=== PATIENT | female | born 1945 | race Caucasian/White ===

== ENCOUNTER 2018-01-20 05:41 | Day surgery (SDC) | payer OTHER ==
[2018-01-20] MEDS ORDERED: ceFAZolin 2 GM/SWFI 2 GM/20 ML SYR IVP ONE (05:56)
[2018-01-20] MEDS ORDERED: NS 500 ML IV ONE (05:58)
--- NOTE | 2018-01-20 06:21 | CPEKG ---
Heart Rate: 52 RR Interval: 1154 P-R Interval: 196 QRSD Interval: 94 QT Interval: 468 QTC Interval: 436 P Phelps: 52 QRS Phelps: -9 T Wave Phelps: 95 EKG Severity - ABNORMAL ECG - EKG Impression: SINUS RHYTHM EKG Impression: NONSPECIFIC T ABNORMALITIES, ANT-LAT LEADS Electronically Signed By: Travis Garcia 20-Jan-2018 10:45:59
[2018-01-20] MEDS ORDERED: LIDOCAINE 1% 300 MG/30 ML SDV ONE (07:05)
[2018-01-20] MEDS ORDERED: THROMBIN (BOVINE) 5,000 UNIT VIAL TP ONE (07:05)
[2018-01-20] MEDS ORDERED: THROMBIN (BOVINE) 20,000 UNIT SPRAY TP ONE (07:05)
[2018-01-20] MEDS ORDERED: BUPIVACAINE 0.5% 30 ML SDV ONE (07:06)
[2018-01-20] MEDS ORDERED: PAPAVERINE HCL 60 MG/2 ML SDV ONE (07:06)
[2018-01-20] MEDS ORDERED: NA BICARBONATE 50 MEQ/50 ML VIAL ONE (07:06)
[2018-01-20] MEDS ORDERED: HEPARIN 50,000 UNIT/10 ML VIAL ONE (07:06)
--- NOTE | 2018-01-20 07:19 | PDHPUP ---
History & Physical Update H&P update statement: This history and physical update is based on an assessment of the patient which was completed after admission or registration (within 24 hours), but prior to the surgery/procedure. H&P update: H&P reviewed & patient examined, no change in patient's condition since H&P completed
--- NOTE | 2018-01-20 07:27 | PDANEPAE ---
ANE History of Present Illness 72 yo female with end stage CKD for dialysis cath and AV fistula placement. ANE Past Medical History - Cardiovascular History Hx Hypertension: Yes Hx Arrhythmias: No Hx Chest Pain: No Hx Coronary Artery / Peripheral Vascular Disease: No Hx CHF / Valvular Disease: Yes Hx Palpitations: No Cardiovascular History Comment: hyperlipidemia. hx of lower extremity edema. chf - Pulmonary History Hx COPD: No Hx Asthma/Reactive Airway Disease: No Hx Recent Upper Respiratory Infection: No Hx Oxygen in Use at Home: No Hx Sleep Apnea: No Sleep Apnea Screening Result - Last Documented: Positive Pulmonary History Comment: hx of PE 02/2013 at [facility] with recurrence 09/2013 - Neurologic History Hx Cerebrovascular Accident: No Hx Seizures: No Neurologic History Comment: essential tremor. left hand numbness. daytime sleepiness- tested for MIC in hosp with negative result - Endocrine History Hx Diabetes: Yes Hypothyroid: Yes Hyperthyroid: No Obesity: moderate Endocrine History Comment: type 2 DM since 2004. hypothyroidism - Renal History Hx Renal Disorders: Yes Renal History Comment: ckd stg 4 d/t SNEHAL and probable diabetic nephropathy. ARF in 07/2010 d/t volume depletion on lasix and. hx of uti - Liver History Hx Hepatic Disorders: No - Neurological & Psychiatric Hx Hx Neurological and Psychiatric Disorders: No - Cancer History Hx Cancer: No - Congenital Disorder History Hx Congenital Disorders: No - GI History Hx Gastrointestinal Disorders: Yes Gastrointestinal History Comment: poss diverticulitis - Other Health History Other Health History: gout - Chronic Pain History Chronic Pain: No - Surgical History Prior Surgeries: cataracts ANE Review of Systems Review of Systems: Pt states she has no recent health problems. She ambulates only with a walker, does not climb stairs. Does not think she has had a cough or cold or chest pains. Care facility unable to say when she last received Nitrostat. - Exercise capacity METS (RN): 2 METS ANE Patient History - Allergies Allergies/Adverse Reactions: allopurinol Allergy (Verified 01/14/18 16:33) Rash amoxicillin [From Augmentin] Allergy (Verified 01/14/18 16:33) Rash clavulanic acid [From Augmentin] Allergy (Verified 01/14/18 16:33) Rash fenofibrate Allergy (Verified 01/14/18 16:33) ARF - Home Medications Home Medications: Aspirin 81mg (*) 81 mg PO DAILY 01/14/18 [Last Taken Unknown] Atorvastatin Calcium 20 mg PO HS 01/14/18 [Last Taken Unknown] Biotene (*) 1 spray PRN 01/14/18 [Last Taken Unknown] Cholecalciferol (Vitamin D3) 50,000 unit PO 01/14/18 [Last Taken Unknown] Famotidine 20 mg PO DAILY 01/14/18 [Last Taken Unknown] Humalog 4 units SQ TID 01/14/18 [Last Taken Unknown] IPRATROPIUM BROMIDE 1 IH Q6H PRN 01/14/18 [Last Taken Unknown] Lantus 40 units SQ BID 01/14/18 [Last Taken Unknown] Lasix 80 MG (*) 80 mg PO BID 01/14/18 [Last Taken Unknown] Mucinex 600 MG (*) 600 mg PO TID 01/14/18 [Last Taken Unknown] Nitrostat 0.4 mg (*) 0.4 mg SL PRN 01/14/18 [Last Taken Unknown] Tessalon Pearles 100 mg PO Q4H PRN 01/14/18 [Last Taken Unknown] - NPO status NPO Since - Liquids (Date): 01/19/18 NPO Since - Liquids (Time): 23:55 NPO Since - Solids (Date): 01/19/18 NPO Since - Solids (Time): 23:55 - Anes Hx Anes Hx: no prior problems - Smoking Hx Smoking Status: Never smoked Marijuana use: No - Family Anes Hx Family Hx Anesthesia Complications: son of complications with intubation during an elective surgery per nephrology H&P ANE Labs/Vital Signs - Vital Signs Blood Pressure: 147/65 Heart Rate: 83 Respiratory Rate: 16 O2 Sat (%): 92 Height: 157.48 cm Weight: 93.803 kg ANE Physical Exam - Airway Neck exam: short neck Mallampati Score: Class 4 (not cooperative with exam. short TMD) Mouth exam: poor dentition - Pulmonary Pulmonary: other (reduced air movement) - Cardiovascular Cardiovascular: systolic murmur (II/ [place]) - ASA Status ASA Status: IV ANE Anesthesia Plan Anesthesia Plan: general endotracheal anesthesia
[2018-01-20 07:30] LABS: INR 0.95 (0.83-1.16); PROTIME(PATIENT) 12.9 SEC (12.0-15.0)
[2018-01-20] MEDS ORDERED: ONDANSETRON 4 MG/2 ML VIAL ONE (07:38)
[2018-01-20] MEDS ORDERED: ETOMIDATE 20 MG/10 ML VIAL ONE (07:38)
[2018-01-20] MEDS ORDERED: CISATRACURIUM BESYLATE 20 MG/10 ML VIAL IV ONE (07:38)
[2018-01-20] MEDS ORDERED: HEPARIN 10,000 UNIT/10 ML MDV (1,000 UNIT/ML) ONE (08:04)
[2018-01-20] MEDS ORDERED: fentaNYL 100 MCG/2 ML INJ ONE (08:17)
[2018-01-20] MEDS: PROTAMINE SULFATE 50 MG/5 ML VIAL IVP ONE ×2 (08:37→08:58)
[2018-01-20] MEDS ORDERED: HYDROCODONE/APAP 5/325 TAB PO PRN (09:10)
[2018-01-20] MEDS ORDERED: PROMETHAZINE HCL 25 MG/ML INJ IVP PRN (09:10)
[2018-01-20] MEDS ORDERED: ACETAMINOPHEN 500 MG TAB PO PRN (09:10)
[2018-01-20] MEDS ORDERED: NALOXONE HCL 0.4 MG/ML INJ IVP PRN ×2 (09:10)
[2018-01-20] MEDS ORDERED: fentaNYL 100 MCG/2 ML INJ IVP PRN (09:10)
[2018-01-20] MEDS ORDERED: ALBUTEROL 3 ML DEYVIAL IH PRN (09:10)
[2018-01-20] MEDS ORDERED: NEOSTIGMINE METHYLSULFATE 3 MG/3 ML SYR ONE (09:14)
[2018-01-20] MEDS ORDERED: GLYCOPYRROLATE 0.2 MG/1 ML VIAL ONE (09:16)
--- NOTE | 2018-01-20 09:40 | POSTOPPROG ---
Post Op Note Date of Operation: 01/20/18 Surgeon: Zoltan Ortiz Timber Repairer: Cam Anesthesiologist: Dela Cruz Anesthesia: GET(General Endotracheal) Pre-op Diagnosis: ESRD Post-op Diagnosis: same Indication: same Procedure: Left upper extremity brachiocephalic AV fistula Inf/Abcess present in the surg proc area at time of surgery?: No Depth: Deep Incisional (Fascial) EBL: Minimal
--- NOTE | 2018-01-20 09:43 | PDIAF ---
- Medication Management Discharge Medications: Medications to Continue on Transfer Aspirin 81mg (*) 81 mg PO DAILY 01/14/18 [Last Taken 01/19/18] Atorvastatin Calcium 20 mg PO HS 01/14/18 [Last Taken 01/19/18] Biotene (*) 1 spray PRN 01/14/18 [Last Taken 01/19/18] Cholecalciferol (Vitamin D3) 50,000 unit PO 01/14/18 [Last Taken 01/19/18] Famotidine 20 mg PO DAILY 01/14/18 [Last Taken 01/20/18] Humalog 4 units SQ TID 01/14/18 [Last Taken 01/19/18] IPRATROPIUM BROMIDE 1 IH Q6H PRN 01/14/18 [Last Taken Unknown] Lantus 40 units SQ BID 01/14/18 [Last Taken 01/20/18] Lasix 80 MG (*) 80 mg PO BID 01/14/18 [Last Taken 01/19/18] Mucinex 600 MG (*) 600 mg PO TID 01/14/18 [Last Taken 01/19/18] Nitrostat 0.4 mg (*) 0.4 mg SL PRN 01/14/18 [Last Taken Unknown] Tessalon Pearles 100 mg PO Q4H PRN 01/14/18 [Last Taken 01/19/18] Hydrocodone/APAP 5/325 [Zoe 5/325 (*)] 1 - 2 tab PO Q4HRS PRN tab 01/20/18 [ Last Taken Unknown] Discharge Medications: Refer to the Discharge Home Medication list for PRN reason. - Orders Services needed: Registered Nurse Diet Recommendation: no restrictions on diet Diet Texture: Regular Texture Diet Additional Instructions: Avoid heavy lifting with left arm. You may shower 24 hours after your surgery, but do not soak in a tub or pool. Zoe for pain. Ok to take plain tylenol as well, but do not exceed 3000mg of Tylenol in 24 hours. Call our office and make a follow up appointment for one week from now. Call with fever, chills and increased pain. - Follow Up Care Current Providers and Referrals: NONE *PRIMARY CARE P,. [Primary Care Provider] - Zoltan Ortiz MD [Medical Doctor] - follow up in 1 week
--- NOTE | 2018-01-20 09:45 | POSTANESTH ---
Post Anesthetic Evaluation Cardiovascular Status: Normal, Stable Respiratory Status: Normal, Stable Level of Consciousness/Mental Status: Other, See Comment (Pt awake and spont vent, but not oriented. Slightly combative. Does not report any pain or nausea at this time.) Pain Control: Adequate, Prn Tx Ordered Nausea/Vomiting Control: Adequate, Prn Tx Ordered Complications Possibly Related to Anesthesia: None Noted
[2018-01-20] MEDS ORDERED: ACETAMINOPHEN 500 MG TAB ONE (12:09)
[2018-01-20 12:35] VITALS: BP 130/52
--- NOTE | 2018-01-20 15:29 | GOP ---
[f rep st] OPERATIVE REPORT DATE OF OPERATION: SURGEON: Zoltan Ortiz MD GUIDE TRAVEL: Salima Levy, nurse practitioner. ANESTHESIOLOGIST: Dr. Lorenzo. PREOPERATIVE DIAGNOSIS: Chronic renal failure. POSTOPERATIVE DIAGNOSIS: Chronic renal failure. PROCEDURE PERFORMED: Ultrasound vein mapping left arm and left brachial cephalic arteriovenous fistu la. FINDINGS: Patient was found to have an adequate cephalic vein with an excellent thrill and bruit pos toperatively. Her cephalic vein at the wrist was only 2 mm. ESTIMATED BLOOD LOSS: Less than 25 cc. DESCRIPTION OF PROCEDURE: The patient was taken to the operating room where she received satisfactor y general endotracheal anesthesia by Dr. Lorenzo. She was placed in supine position with the left ar m outstretched on an arm board, prepped and draped in the usual sterile fashion. Using ultrasound guidance the veins of the arm were mapped and the upper arm cephalic vein appeared t o be quite adequate, as opposed to the wrist cephalic vein. A curvilinear incision was made over the antecubital space and dissection extended down through subcu taneous tissue. Biceps aponeurosis was divided and the brachial artery was dissected free and contro lled with vessel loops. The cephalic vein was dissected free in the antecubital space. It was divid ed away from its branches with the basilic vein so it could be transposed over to the brachial artery . There was good backflow from the vein and it dilated easily. The patient was systemically heparin ized and an end-to-side anastomosis was made to the brachial artery creating an 8 mm anastomosis. Th is was done with a running 6-0 Prolene suture. Flow was first established through the AV fistula, th en back down the hand. She had good radial pulse maintained and excellent flow in the AV fistula. H emostasis was obtained. Additional 6-0 Prolene suture was placed in the suture line near a small vei n branch, which was leaking. Hemostasis was clearly obtained. Heparin was reversed with protamine. The wound was infiltrated with 0.5% Marcaine and sprayed with some topical thrombin and then closed in layers using 3-0 Vicryl for the subcutaneous tissue and a 4-0 Monocryl subcuticular stitch for the skin. She tolerated procedure well and taken to the recovery room in good condition. COMPLICATIONS: There were no complications. /[id number]/MODL
== END 2018-01-20 12:41 ==
LOC: FSGY 05:41
PROVIDERS: ATTEND Surgery
PROC: 03180ZD Bypass Left Brachial Artery to Upper Arm Vein, Open Approach (ICD-10-PCS; principal; 2018-01-20 07:15)
DX: N18.6 End stage renal disease (principal); E11.9 Type 2 diabetes mellitus without complications; E78.5 Hyperlipidemia, unspecified; I10 Essential (primary) hypertension
CPT/HCPCS: J0690; J1642; J1644; J2405; J2440; J2710; J2720; J3010

== ENCOUNTER 2018-06-07 11:32 | Day surgery (SDC) | payer OTHER, MEDICAID ==
--- NOTE | 2018-06-06 09:25 | GHP ---
DATE OF ADMISSION: 06/07/2018 HISTORY OF PRESENT ILLNESS: The patient a pleasant 72-year-old female with chronic renal failure not yet on dialysis, who was seen in followup in our clinic after left upper extremity AV fistula creati on in December of 2017. Examination of her fistula is pulsatile just proximal from the AV anastomosis. M ore proximal to this she has an even thrill. Ultrasound examination shows a fairly severe stenosis w ith a possible tributary. She is here now for revision of her AV fistula, likely using a vein patch. PAST MEDICAL HISTORY: Chronic kidney disease, depression, diabetes, hypercalcemia, hyperlipidemia, h ypothyroidism, history of pulmonary embolism. PAST SURGICAL HISTORY: AV fistula, cholecystectomy. MEDICATIONS: Carvedilol, gabapentin, Humalog insulin, hydroxyzine, Lantus insulin, Lasix, levothyrox ine, lisinopril, Lyrica, Norvasc, Percocet, prednisone, Vagisil, warfarin. ALLERGIES: Allopurinol and Augmentin. SOCIAL HISTORY: The patient lives in a fdc. She is a nonsmoker. REVIEW OF SYSTEMS: A 10-point review of systems negative aside from that documented in HPI. PHYSICAL EXAMINATION: GENERAL: Reveals a chronically ill-appearing woman in a wheelchair. HEENT: Normocephalic atraumatic. CHEST: Clear to auscultation bilaterally. CARDIAC: Regular rate and rhy thm. ABDOMEN: Soft, nontender. EXTREMITIES: Per above. Fistula with pulsatile thrill. Hand is w arm and dry. DATA REVIEWED: Ultrasound examination shows a dilated vein proximal to the anastomosis with stenosis and then, the vein dilates back up to a normal diameter more proximal to the stenosis. There is a t ributary present. IMPRESSION: This is a 72-year-old female status post left upper extremity AV fistula creation, not y et on dialysis, who has a severe stenosis of the fistula vein. PLAN: Revise the fistula likely using a vein patch. Risks and options have been discussed including , but not limited to, bleeding, infection, nerve injury, clotting, need for further surgeries and/or revisions, need for alternate access, damage to surrounding structures, and other problems, and she r equests to proceed. /[id number]/MODL
[~2018-06-07 11:32] MED LIST: BUPIVACAINE 0.5% 30 ML SDV ONE; CLINDAMYCIN 900 MG/DEXTROSE 50 ML IV ONE; NS 1,000 ML IV ONE; PAPAVERINE HCL 60 MG/2 ML SDV ONE; PROTAMINE SULFATE 50 MG/5 ML VIAL IVP ONE; THROMBIN (BOVINE) 20,000 UNIT VIAL TP ONE; THROMBIN (BOVINE) 5,000 UNIT VIAL TP ONE; ceFAZolin 2 GM/DEXTROSE 100 ML IV ONE
[2018-06-07 11:36] LABS: PLATELET COUNT 159 10^3/uL (150-400)
--- NOTE | 2018-06-07 11:36 | PDANEPAE ---
ANE History of Present Illness here for AVF ANE Past Medical History - Cardiovascular History Hx Hypertension: Yes Hx Arrhythmias: No Hx Chest Pain: No Hx Coronary Artery / Peripheral Vascular Disease: No Hx CHF / Valvular Disease: Yes Hx Palpitations: No Cardiovascular History Comment: hyperlipidemia. hx of lower extremity edema. chf - Pulmonary History Hx COPD: No Hx Asthma/Reactive Airway Disease: No Hx Recent Upper Respiratory Infection: No Hx Oxygen in Use at Home: No Hx Sleep Apnea: No Sleep Apnea Screening Result - Last Documented: Positive Pulmonary History Comment: hx of PE 02/2013 at [facility] with recurrence 2013. MIC triggers - Neurologic History Hx Cerebrovascular Accident: No Hx Seizures: No Neurologic History Comment: essential tremor. left hand numbness - Endocrine History Hx Diabetes: Yes Endocrine History Comment: type 2 DM since 2004. hypothyroidism - Renal History Hx Renal Disorders: Yes Renal History Comment: ckd stg 4. hx of uti - Liver History Hx Hepatic Disorders: No - Neurological & Psychiatric Hx Hx Neurological and Psychiatric Disorders: No - Cancer History Hx Cancer: No - Congenital Disorder History Hx Congenital Disorders: No - GI History Hx Gastrointestinal Disorders: Yes Gastrointestinal History Comment: poss diverticulitis - Other Health History Other Health History: gout. wears glasses - Chronic Pain History Chronic Pain: No - Surgical History Prior Surgeries: 01/20/18 left AV fistula with Ortiz. cataracts ANE Review of Systems Review of systems is: negative Review of Systems: - Exercise capacity METS (RN): 2 METS ANE Patient History - Allergies Allergies/Adverse Reactions: allopurinol Allergy (Verified 06/06/18 16:36) Rash amoxicillin [From Augmentin] Allergy (Verified 06/07/18 11:26) Rash clavulanic acid [From Augmentin] Allergy (Verified 06/06/18 16:36) Rash fenofibrate Allergy (Verified 06/06/18 16:36) ARF - Home Medications Home medications: home medication list seen and reviewed Home Medications: Aspirin 81mg (*) 01/14/18 [Last Taken 06/07/18 09:00] Atorvastatin Calcium 01/14/18 [Last Taken 01/19/18] Biotene (*) 01/14/18 [Last Taken 01/19/18] Famotidine 01/14/18 [Last Taken 06/07/18 09:00] Humalog 01/14/18 [Last Taken 01/19/18] IPRATROPIUM BROMIDE 01/14/18 [Last Taken Unknown] Lantus BID 01/14/18 [Last Taken 06/07/18 09:00] Lasix 80 MG (*) 01/14/18 [Last Taken 01/19/18] Mucinex 600 MG (*) 01/14/18 [Last Taken 06/07/18 09:00] Nitrostat 0.4 mg (*) 01/14/18 [Last Taken Unknown] Amlodipine Besylate 06/06/18 [Last Taken 06/07/18 09:00] Biofreeze 06/06/18 [Last Taken Unknown] Hydroxyzine HCl 06/06/18 [Last Taken Unknown] LYRICA 06/06/18 [Last Taken Unknown] Levothyroxine 06/06/18 [Last Taken 06/07/18 09:00] Miralax 17 gm (*) 06/06/18 [Last Taken Unknown] Oxycodone HCl 06/06/18 [Last Taken Unknown] Potassium Chloride 06/06/18 [Last Taken 06/07/18 09:00] Tums 500MG (*) 06/06/18 [Last Taken 06/07/18 09:00] ULORIC 06/06/18 [Last Taken 06/07/18 09:00] Claritin 06/07/18 [Last Taken Unknown] Ferrous Sulfate 06/07/18 [Last Taken 06/07/18 09:00] Senna-S Tablet 06/07/18 [Last Taken Unknown] Tubersol 06/07/18 [Last Taken Unknown] - NPO status NPO Status: no food or drink >8 hours NPO Since - Liquids (Date): 06/07/18 NPO Since - Liquids (Time): 07:00 NPO Since - Solids (Date): 06/06/18 NPO Since - Solids (Time): 18:30 - Smoking Hx Smoking Status: Never smoked - Family Anes Hx Family Hx Anesthesia Complications: son of complications with intubation during an elective surgery per nephrology H&P ANE Labs/Vital Signs - Labs Result Diagrams: 06/07/18 11:24 06/07/18 11:24 - Vital Signs Vital Signs: reviewed preoperatively; see RN documention for details Blood Pressure: 141/75 Heart Rate: 56 Respiratory Rate: 18 O2 Sat (%): 92 Height: 157.48 cm Weight: 94.12 kg ANE Physical Exam - Airway Neck exam: FROM, short neck Mallampati Score: Class 3 Mouth exam: normal dental/mouth exam - Pulmonary Pulmonary: no respiratory distress - Cardiovascular Cardiovascular: systolic murmur ANE Anesthesia Plan Anesthesia Plan: general endotracheal anesthesia
[2018-06-07] MEDS ORDERED: PROPOFOL/EMULSION 500 MG/50 ML BOTTLE IV ONE (11:53)
[2018-06-07] MEDS ORDERED: fentaNYL 100 MCG/2 ML INJ ONE (11:58)
[2018-06-07] MEDS ORDERED: ONDANSETRON 4 MG/2 ML VIAL ONE (12:10)
[2018-06-07] MEDS ORDERED: HYDROCODONE/APAP 5/325 TAB PO PRN (12:28)
[2018-06-07] MEDS ORDERED: DEXAMETHASONE 4 MG/ML VIAL IVP PRN (12:28)
[2018-06-07] MEDS ORDERED: oxyCODONE IR 5 MG TAB PO PRN (12:28)
[2018-06-07] MEDS ORDERED: fentaNYL 100 MCG/2 ML INJ IVP PRN (12:28)
[2018-06-07] MEDS ORDERED: ONDANSETRON 4 MG/2 ML VIAL IVP PRN (12:28)
[2018-06-07] MEDS ORDERED: NALOXONE HCL 0.4 MG/ML INJ IVP PRN (12:28)
[2018-06-07] MEDS ORDERED: ALBUTEROL 3 ML DEYVIAL IH PRN (12:28)
--- NOTE | 2018-06-07 14:02 | POSTANESTH ---
Post Anesthetic Evaluation Cardiovascular Status: Normal, Stable Respiratory Status: Normal, Stable Level of Consciousness/Mental Status: Mildly Sleepy, Arousable Pain Control: Adequate, Prn Tx Ordered Nausea/Vomiting Control: Adequate, Prn Tx Ordered Complications Possibly Related to Anesthesia: None Noted
--- NOTE | 2018-06-07 14:29 | POSTOPPROG ---
Post Op Note Date of Operation: 06/07/18 Surgeon: Zoltan Ortiz Signal Integrity Engineer: Caren Walker Anesthesiologist: Maximilian Prado Anesthesia: GET(General Endotracheal) Pre-op Diagnosis: CRF, AVF stenosis Post-op Diagnosis: same Procedure: LUE AVF revision with resection and vein patch. Findings: improved thrill post procedure, less pulstile, good flow Inf/Abcess present in the surg proc area at time of surgery?: No EBL: Minimal Complications: none
[2018-06-07 16:18] VITALS: BP 143/62
--- NOTE | 2018-06-10 04:03 | GOP ---
DATE OF OPERATION: 06/07/2018 SURGEON: Zoltan Ortiz MD CAPTAIN AIRLINE PILOT: LISA Valenzuela. ANESTHESIOLOGIST: Dr. Prado. PREOPERATIVE DIAGNOSIS: Chronic renal failure and AV fistula stenosis. POSTOPERATIVE DIAGNOSIS: Chronic renal failure and AV fistula stenosis. PROCEDURE PERFORMED: 1. Left upper extremity AV fistula revision with resection and vein patch. 2. Ultrasound vein mapping. FINDINGS: Patient was found to have a good thrill and bruit after the procedure. There was a defini te strictured segment approximately 3 cm from the proximal anastomosis. DESCRIPTION OF PROCEDURE: Patient was taken to the operating room where she received a satisfactory general endotracheal anesthesia by Dr. Prado, placed in supine position with the left arm outstretch ed on arm board, prepped and draped in usual sterile fashion. A longitudinal incision was made along the course of the AV fistula from the pulsatile area to the more quiet thrill area. The vein was di ssected free proximal and distal to this area. A definite stricture was identified as noted above. After adequate dissection, the patient was systemically heparinized. A venotomy was then made in the proximal vein, extended through the dissected stenotic portion. The scarred portion of the artery w as primarily resected. A vein graft was harvested from a tributary to the AV fistula. The proximal and distal ends were partially approximated posteriorly with a running 6-0 Prolene suture anteriorly. A patch was used to enlarge the diameter of the AV fistula. This was sutured in place again with a running 6-0 Prolene suture, created a much larger outflow for the vein and yarsanism of a strong t hrill in the AV fistula and a less pulsatile inflow. Heparin was reversed with protamine. Hemostasi s was assured. The wound was infiltrated with 0.5% Marcaine. Also some topical thrombin was placed i n the surgical site which was then closed with interrupted 3-0 Vicryl sutures for the subcutaneous ti ssue and a running 4-0 Monocryl subcuticular stitch for the skin. Incision was infiltrated with 0.5% Marcaine. She tolerated the procedure well, taken to recovery room in good condition. There were no complications. /[id number]/MODL
== END 2018-06-07 16:06 | disposition home or self-care (01) ==
LOC: FSGY 11:32
PROVIDERS: ATTEND Surgery
DX: T82.858A Stenosis of other vascular prosthetic devices, implants and grafts, initial encounter (principal); N18.9 Chronic kidney disease, unspecified; Z66 Do not resuscitate
CPT/HCPCS: J0690; J1644; J2405; J2440; J2704; J2720; J3010